=== PATIENT | female | born 1960 | race Caucasian/White ===

== ENCOUNTER 2023-04-12 18:16 | Emergency (ER) | payer MEDICAID ==
[~2023-04-12] VITALS: Ht 157.5 cm; Wt 54.0 kg
[2023-04-12 18:21] VITALS: BP 109/72
== END 2023-04-12 23:02 | disposition left against medical advice (07) ==
LOC: ER 18:16
DX: M79.604 Pain in right leg (principal); M79.605 Pain in left leg; Z53.21 Procedure and treatment not carried out due to patient leaving prior to being seen by health care provider
CPT/HCPCS: 99281